=== PATIENT | female | born 1965 | race African-American/Black ===

== ENCOUNTER 2021-12-13 11:42 | Emergency (ER) | payer OTHER ==
[2021-12-13] MEDS ORDERED: HYDROCODONE/APAP 5/325 MG TAB ONE (12:23)
[2021-12-13] MEDS ORDERED: ONDANSETRON 4 MG (ODT) TAB ONE (12:24)
[2021-12-13 12:35] LABS: Urine Appearance CLOUDY (Clear); Urine Blood NEGATIVE (Negative); Urine Color YELLOW (Yellow); Urine Glucose NEGATIVE (Negative); Urine Protein TRACE (Negative); Urine Urobilinogen 0.2 mg/dL (0.2-1.0)
[2021-12-13 12:37] LABS: Urine Bilirubin 1+ (Negative); Urine Microscopic Reflex ORDER UMIC
[2021-12-13 12:56] LABS: Urine Bacteria <20 /HPF (<20); Urine RBC NONE SEEN /HPF (NONE SEEN)
[2021-12-13 14:11] LABS: SARS-COV-2 RT PCR NEGATIVE (NEGATIVE)
--- NOTE | 2021-12-13 14:51 | EDPHYS ---
Physician Documentation [facility] Name: Shereen Bates Age: 56 yrs Sex: Female : 1965 Arrival Date: 12/13/2021 Time: 11:43 Bed 10 Private MD: ED Physician Colton Heard HPI: 12/13 13:03 This 56 yrs old Black Female presents to ER via Wheelchair with complaints of Low Back ms3 Pain, bodyaches, Nausea, Decreased Appetite. 13:03 The patient presents with pain that is chronic, with no known mechanism of injury. The ms3 symptoms are located in the low back. The pain does not radiate. The problem was sustained without known cause. Modifying factors: the patient symptoms are aggravated by movement. Associated signs and symptoms: Pertinent negatives: constipation, incontinence, numbness. 56-year-old female with past medical history of scoliosis, seizures, hypertension, angina, hyperlipidemia presents for body aches, chills that been ongoing for 2 days. Patient denies sick contacts. Patient states her discomfort is an 8/10 and aching. Patient denies alleviating or inciting factors.. Historical: - Allergies: 11:59 Trileptal; ab2 - PMHx: 11:59 Arthritis; Hypertensive disorder; Scoliosis; ab2 - PSHx: 11:59 section; Ligation of fallopian tube; Hysterectomy; Tonsillectomy; ab2 Cholecystectomy; - Immunization history:: Adult Immunizations up to date. - Social history:: Smoking status: Patient denies any tobacco usage or history of. ROS: 13:07 Eyes: Negative for injury, pain, redness, and discharge, ENT: Negative for injury, ms3 pain, and discharge, Cardiovascular: Negative for chest pain, and palpitations. Respiratory: Negative for shortness of breath, cough, wheezing, and pleuritic chest pain, Abdomen/GI: Negative for abdominal pain, nausea, vomiting, diarrhea, and constipation, MS/Extremity: Negative for injury and deformity, Skin: Negative for injury, rash, and discoloration, Neuro: Negative for headache, weakness, numbness, tingling. 13:07 Constitutional: Positive for body aches, chills. 13:07 Abdomen/GI: Positive for nausea. 13:07 All other systems are negative. Exam: 13:07 Constitutional: This is a well developed, well nourished patient who is awake, alert, ms3 and in no acute distress. Head/Face: Normocephalic, atraumatic. Eyes: Pupils equal round and reactive to light, extra-ocular motions intact. Lids and lashes normal. Conjunctiva and sclera are non-icteric and not injected. Periorbital areas with no swelling, redness, or edema. Chest/axilla: Normal chest wall appearance and motion. Nontender with no deformity. Cardiovascular: Regular rate and rhythm with a normal S1 and S2. No gallops, murmurs, or rubs. Normal PMI, no JVD. No pulse deficits. Respiratory: Lungs have equal breath sounds bilaterally, clear to auscultation and percussion. No rales, rhonchi or wheezes noted. No increased work of breathing, no retractions or nasal flaring. Abdomen/GI: Soft, non-tender, with normal bowel sounds. No distension or tympany. No guarding or rebound. No evidence of tenderness throughout. Skin: Warm, dry with normal turgor. Normal color with no rashes, no lesions, and no evidence of cellulitis. MS/ Extremity: Pulses equal, no cyanosis. Neurovascular intact. Full, normal range of motion. Psych: Awake, alert, with orientation to person, place and time. Behavior, mood, and affect are within normal limits. Vital Signs: 11:55 BP 107 / 95; Pulse 104; Resp 18; Temp 98.4(O); Pulse Ox 99% on R/A; Weight 108.86 kg; ab2 Height 5 ft. 4 in. (162.56 cm); Pain 8/10; 13:45 BP 124 / 61; Pulse 86; Resp 16; Pulse Ox 96% on R/A; ss7 15:04 BP 113 / 63; Pulse 78; Resp 18; Pulse Ox 98% on R/A; ss7 11:55 Body Mass Index 41.20 (108.86 kg, 162.56 cm) ab2 MDM: 12:15 Patient medically screened. ms3 14:51 Differential diagnosis: arthritis, UTI, COVID, FLU, RSV. Data reviewed: vital signs, ms3 nurses notes, lab test result(s). Data interpreted: Pulse oximetry: on room air is 96 %. Counseling: I had a detailed discussion with the patient and/or guardian regarding: the historical points, exam findings, and any diagnostic results supporting the discharge/admit diagnosis, lab results, the need for outpatient follow up, an freelance programmer/app developer. ED course: Discussed labs and physical exam findings with patient. Patient to follow-up with primary care physician as discussed. All questions were answered. Return precautions discussed include worsening symptoms, or any other concerns. On reevaluation patient is improved, no apparent distress, nontoxic appearing.. 12/13 12:15 Order name: Urinalysis; Complete Time: 13:53 ms3 12/13 12:19 Order name: COVID-19/FLU A+B/RSV (Document "Date of Onset" if Symptomatic); Complete ab2 Time: 14:43 12/13 12:37 Order name: Urine Microscopic Only; Complete Time: 13:53 EDMS Administered Medications: 12:25 Drug: HYDROcodone-acetaminophen 5 mg-325 mg 1 tabs Route: PO; ss7 13:45 Follow up: Response: Pain is decreased ss7 12:25 Drug: Ondansetron 4 mg Route: PO; ss7 13:45 Follow up: Response: No adverse reaction; Nausea is decreased ss7 Disposition Summary: 12/13/21 14:50 Discharge Ordered Location: Home ms3 Condition: Stable ms3 Diagnosis - Myalgia ms3 - Low back pain ms3 - Chills (without fever) ms3 Followup: ms3 - With: Private Physician - When: 2 - 3 days - Reason: Discharge Instructions: - Discharge Summary Sheet ms3 - Acute Back Pain, Adult ms3 - Musculoskeletal Pain ms3 Forms: - Medication Reconciliation Form ms3 - Thank You Letter ms3 - Antibiotic Education ms3 - Prescription Opioid Use ms3 Signatures: Dispatcher [employer] EDMS Colton Heard DO DO ms3 Star Baxter ab2 Diane Quintana, RN RN ss7 Corrections: (The following items were deleted from the chart) 12:00 11:59 PSHx: None; ab2 ab2
--- NOTE | 2021-12-13 14:51 | ER ---
Nurse's Notes [facility] Name: Shereen Bates Age: 56 yrs Sex: Female : 1965 Arrival Date: 12/13/2021 Time: 11:43 Bed 10 Private MD: Diagnosis: Myalgia;Low back pain;Chills (without fever) Presentation: 12/13 11:55 Chief complaint: Patient states: "I feel weak, I hurt all over, I can't eat or drink ab2 anything and I am cold all over" Pt denies v/d. Pt c/o generalized body aches, chills and nausea for 2 days. Coronavirus screen: Vaccine status: Patient reports receiving the 2nd dose of the covid vaccine. Client denies travel out of the [place] in the last 14 days. chills, fatigue, muscle pain, nausea, Client presents with at least one sign or symptom that may indicate coronavirus-19. Standard/surgical mask placed on the client. Provider contacted for isolation considerations. Ebola Screen: Patient negative for fever greater than or equal to 101.5 degrees Fahrenheit, and additional compatible Ebola Virus Disease symptoms Patient denies exposure to infectious person. Patient denies travel to an Ebola-affected area in the 21 days before illness onset. No symptoms or risks identified at this time. Initial Sepsis Screen: Does the patient meet any 2 criteria? No. Patient's initial sepsis screen is negative. Does the patient have a suspected source of infection? No. Patient's initial sepsis screen is negative. Risk Assessment: Do you want to hurt yourself or someone else? Patient reports no desire to harm self or others. Onset of symptoms is unknown. 11:55 Method Of Arrival: Wheelchair ab2 11:55 Acuity: CECILIA 4 ab2 Triage Assessment: 12:01 General: Appears in no apparent distress. comfortable, Behavior is calm, cooperative, ab2 appropriate for age. Pain: Complains of pain in Generalized body aches. GI: Reports intolerance of fluids, intolerance of food, nausea, Patient currently denies diarrhea, vomiting. Historical: - Allergies: 11:59 Trileptal; ab2 - PMHx: 11:59 Arthritis; Hypertensive disorder; Scoliosis; ab2 - PSHx: 11:59 section; Ligation of fallopian tube; Hysterectomy; Tonsillectomy; ab2 Cholecystectomy; - Immunization history:: Adult Immunizations up to date. - Social history:: Smoking status: Patient denies any tobacco usage or history of. Screenin:27 Abuse screen: Denies threats or abuse. Nutritional screening: No deficits noted. ss7 Tuberculosis screening: No symptoms or risk factors identified. Fall Risk Gait- Weak (10 pts.). Assessment: 12:27 General: Appears uncomfortable, Behavior is calm, cooperative, appropriate for age. ss7 Pain: Complains of pain in generalized. Neuro: Level of Consciousness is awake, alert, obeys commands, Oriented to person, place, time, situation. Cardiovascular: Heart tones S1 S2. Respiratory: Breath sounds are clear bilaterally. GI: Abdomen is obese, Bowel sounds present X 4 quads. GI: Reports nausea. : No deficits noted. EENT: No deficits noted. Derm: No deficits noted. Musculoskeletal: Reports weakness in generalized body pain in generalized body. 13:45 Reassessment: Patient appears in no apparent distress at this time. Patient and/or ss7 family updated on plan of care and expected duration. Pain level reassessed. Patient is alert, oriented x 3, equal unlabored respirations, skin warm/dry/pink. Patient states feeling better. Vital Signs: 11:55 BP 107 / 95; Pulse 104; Resp 18; Temp 98.4(O); Pulse Ox 99% on R/A; Weight 108.86 kg; ab2 Height 5 ft. 4 in. (162.56 cm); Pain 8/10; 13:45 BP 124 / 61; Pulse 86; Resp 16; Pulse Ox 96% on R/A; ss7 15:04 BP 113 / 63; Pulse 78; Resp 18; Pulse Ox 98% on R/A; ss7 11:55 Body Mass Index 41.20 (108.86 kg, 162.56 cm) ab2 ED Course: 11:43 Patient arrived in ED. am2 11:58 Triage completed. ab2 12:01 Arm band placed on right wrist. ab2 12:06 Colton Heard DO is Attending Physician. ms3 12:27 Diane Quintana, RN is Primary Nurse. ss7 12:27 Patient has correct armband on for positive identification. Call light in reach. Warm ss7 blanket given. 12:27 No provider procedures requiring assistance completed. ss7 12:32 COVID-19/FLU A+B/RSV (Document "Date of Onset" if Symptomatic) Sent. ss7 12:32 Urinalysis Sent. ss7 15:04 Patient did not have IV access during this emergency room visit. ss7 Administered Medications: 12:25 Drug: HYDROcodone-acetaminophen 5 mg-325 mg 1 tabs Route: PO; ss7 13:45 Follow up: Response: Pain is decreased ss7 12:25 Drug: Ondansetron 4 mg Route: PO; ss7 13:45 Follow up: Response: No adverse reaction; Nausea is decreased ss7 Outcome: 14:50 Discharge ordered by . ms3 15:04 Discharged to home ss7 15:04 Condition: good 15:04 Discharge instructions given to patient, Instructed on discharge instructions, Demonstrated understanding of instructions. 15:04 Patient left the ED. ss7 Signatures: Lacey Cheek am2 Colton Heard DO DO ms3 Star Baxter ab2 Diane Quintana RN RN ss7 Corrections: (The following items were deleted from the chart) 12:00 11:59 PSHx: None; ab2 ab2
[2021-12-13 15:09] VITALS: TEMP 98.4
[2021-12-13 15:11] VITALS: BP 113/63; O2SAT 98
== END 2021-12-13 15:04 | disposition home or self-care (01) ==
LOC: ER 11:42
DX: M79.10 Myalgia, unspecified site (principal); R68.83 Chills (without fever); R11.0 Nausea; I10 Essential (primary) hypertension; Z20.822 Contact with and (suspected) exposure to COVID-19; Z88.8 Allergy status to other drugs, medicaments and biological substances
CPT/HCPCS: 0241U; 99283; 81003; 81015